=== PATIENT | female | born 1950 | race Caucasian/White ===

== ENCOUNTER 2021-07-16 16:48 | Outpatient (CLI) | payer MEDICARE, OTHER, SELFPAY ==
--- NOTE | ~2021-07-16 | XR_ITS ---
XR abdomen/kub 1V 07/16/2021 17:19 Indication: Bilateral renal stones Procedure: KUB Comparison: No prior studies for comparison. Findings: There are bilateral renal stones, largest confluent grouping of stones in the right kidney. There is a deployed IVC filter. Bowel pattern is nonobstructive. There is moderate lumbar spondylosi s. Moderate osteoarthritis of the hips. Lung bases are unremarkable. Impression: 1: Bilateral nephrolithiasis. Reviewed, dictated and finalized at location B. Impression: 1: Bilateral nephrolithiasis.
== END 2021-07-16 16:49 | disposition home or self-care (01) ==
LOC: ANHIMG 17:02
PROVIDERS: PCP Internal Medicine; Visit Provider Urology
DX: N20.0 Calculus of kidney (principal)
CPT/HCPCS: 74018

== ENCOUNTER 2021-10-22 15:02 | Outpatient (CLI) | payer MEDICARE, OTHER, SELFPAY ==
--- NOTE | ~2021-10-22 | XR_ITS ---
XR abdomen/kub 1V DATE: 10/22/2021 15:31 INDICATION: Bilateral renal stones. No pain. TECHNIQUE: AP projection of 2 views COMPARISON: 07/16/2021 KUB FINDINGS: There is relatively stable bilateral prominent nephrolithiasis compared to 07/16/2021. IVC filter is again noted. The psoas shadows are intact. No visceromegaly. No evidence of bowel obstruction. IMPRESSION: Bilateral nephrolithiasis IVC filter Reviewed, dictated and finalized at Location A. Reviewed, dictated and finalized at location A. 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
== END 2021-10-22 15:03 | disposition home or self-care (01) ==
PROVIDERS: PCP Internal Medicine; Visit Provider Urology
DX: N20.0 Calculus of kidney (principal)
CPT/HCPCS: 74018

== ENCOUNTER 2021-10-26 10:44 | Outpatient (CLI) | payer MEDICARE, OTHER, SELFPAY ==
--- NOTE | 2021-10-26 10:30 | ECG_ITS ---
Measurements Intervals [place] Rate: 61 P: 58 TN: 161 QRS: -14 QRSD: 93 T: 20 QT: 402 QTc: 407 Interpretive Statements SINUS RHYTHM INCOMPLETE RIGHT BUNDLE BRANCH BLOCK VOLTAGE CRITERIA FOR LVH MINIMAL Q WAVES- HIGH LATERAL LEADS BASELINE ARTIFACT- I, II, III, AVL, AVF BORDERLINE ECG Electronically Signed On 10-26-2021 11:07:48 [employer]IMARY MILL [employer]ER by Dereck Bryan D.O.
[2021-10-26 11:41] LABS: INR 1.8; Prothrombin Time 20.8 Seconds (11.1-14.7)
[2021-10-26 11:42] LABS: Partial Thromboplastin Time 32.9 SECONDS (22.3-36.8)
== END 2021-10-26 10:45 | disposition home or self-care (01) ==
LOC: ANHSURGERY 10:50
PROVIDERS: PCP Internal Medicine; Visit Provider Urology
DX: N20.0 Calculus of kidney (principal); I10 Essential (primary) hypertension; Z01.818 Encounter for other preprocedural examination; I45.10 Unspecified right bundle-branch block
CPT/HCPCS: 36415; 85610; 85730; 87086; 93005

== ENCOUNTER 2021-11-02 02:35 | Day surgery (SDC) | payer MEDICARE, OTHER, SELFPAY ==
[2021-10-25 13:33] VITALS: BMI 39.1
--- NOTE | 2021-10-25 13:50 | PC.NURSE ---
Report to the Outpatient Waiting Room, entrance under the green pavilion located off [facility], at time _0730_ on date _11/02/21_. OR Time: _0930_. - You and your visitor will be asked a series of questions to screen for COVID 19 for your protection. - A mask is required within the hospital. - NO visitors are allowed at this time. Patient visitors will be guided where to wait when not with patient. Preoperative COVID Testing Requirements: No COVID Test needed if: (proof is required; if not received patient will have Rapid Test prior to entry) - Patient has received COVID Vaccine at least 14 days prior to procedure date or - Patient has positive COVID test result within last 90 days of surgery date. COVID Test needed if above criteria is not met If not COVID vaccinated a COVID test must be conducted within 72 hours of surgery and patient is asked to isolate self from time of testing until procedure. You will go to the [email or web address] for your COVID testing. The [email or web address] site is located at the corner of [address] [facility]. You will only be called if COVID results are positive and your surgeon may reschedule your elective surgery date. Patients may have clear liquids (water, carbonated beverages, clear teas, apple juice) until 3 hours prior to surgery with a maximum of 20 ounces. (0630 AM) - No food from midnight until time of surgery - Infants may have breast milk until 4 hours before surgery, infant formula 6 hours prior to surgery. - Children will be allowed to drink immediately following surgery. If applicable, please bring a bottle or sippy cup to assist with drinking. Juice, water, soda, and popsicles are readily available. For infants on formula, please bring formula the day of surgery. Pacifiers are allowed. Take the following medications with a SIP of water the morning of surgery: _DILTIAZEM, LEVOTHYROXINE, PROPRANOLOL, TYLENOL__ Medications to discontinue per DR. BOLIVAR - COUMADIN - LAST DOSE TO BE TAKEN 10/26/21_ Medication to discontinue per ANESTHESIA - MULTIVITAMIN, VIT D3 - LAST DOSE TO BE TAKEN 10/29/21__ Please no make-up, nail gabonese, hairspray, perfume, deodorant, or body powder the day of surgery. No jewelry (including any body piercings) or valuables the day of surgery, leave them at home. Please take a shower or bath the night before, or the morning of, surgery with an antibacterial soap. Wear comfortable, loose fitting clothing. Children are encouraged to wear pajamas. - Jewelry must be removed prior to entering the operating room. Rings and piercings that are not removed may be cut off. - The hospital will not accept responsibility for valuables. - Please leave all valuables, including medications, at home the day of surgery. If you are going home after surgery, a licensed helper/driver must drive you home. - NO public transportation without another adult. - We recommend that an adult stay with you for 24 hours following discharge. - We also recommend that you do not drive, make important decision, drink alcoholic beverages, or take any drugs that were not prescribed by your health care provider for at least 24 hours after your discharge time. For Pediatric surgeries, we recommend two adults accompany the child home (only one inside the building at this time). Follow any additional instructions given to you from your surgeon. Telephone instructions given to ___PT and asked if any additional questions and then verbalized understanding. Patient advised to call surgeon office or pre surgery nurse liaison [phone] if any additional questions.
--- NOTE | 2021-11-01 14:29 | P.PNAN_ITS ---
Anes - Eval Pre Procedure Procedure: Operation Date: 11/02/21 09:30 Proposed Procedures p Right Extracorporeal Shock Wave Lithotripsy - Tejas Abreu MD Date/Time: 11/01/21 14:29 Pre Op Diagnosis: Rt Kidney Stone Patient Data Age: 71 Gender: F Height: 1.52 m Weight: 90.9 kg Allergies Allergy/AdvReac Type Severity Reaction Status Date / Time No Known Allergies Allergy Verified 10/25/21 13:24 Home Medications Medication Instructions Recorded Confirmed Type acetaminophen [Tylenol Ex Str 1,000 mg PO BID 10/25/21 10/25/21 History Arthritis Pain] albuterol 90 mcg INHALATION QID PRN 10/25/21 10/25/21 History cephalexin 250 mg HS 10/25/21 10/25/21 History cholecalciferol (vitamin D3) 25 mcg PO QAM 10/25/21 10/25/21 History [Vitamin D3] diltiazem HCl 180 mg PO QAM 10/25/21 10/25/21 History latanoprost 1 drp EACH EYE QPM 10/25/21 10/25/21 History levothyroxine 112 mcg PO QAM 10/25/21 10/25/21 History multivitamin [Multi-Vitamin] 1 tablet PO HS 10/25/21 10/25/21 History omeprazole 20 mg PO QAM 10/25/21 10/25/21 History propranolol [Inderal LA] 120 mg PO QAM 10/25/21 10/25/21 History sertraline 50 mg PO HS 10/25/21 10/25/21 History simvastatin 10 mg PO QAM 10/25/21 10/25/21 History warfarin [Coumadin] 2 mg PO HS 10/25/21 10/25/21 History Patient hx anesthesia problems: none Family hx anesthesia problems: none Results Review: All pre-operative results and documents have been reviewed as part of the pre-operative evaluation. [facility] Past Medical History Medical History (Updated 11/01/21 @ 14:35 by Crystal Sanders CRNA) Asthma Back pain GERD (gastroesophageal reflux disease) H/O deep venous thrombosis HTN (hypertension) Hx of pulmonary embolus Hyperlipidemia Hypothyroid Surgical History Surgical History (Updated 11/01/21 @ 14:35 by rCystal Sanders CRNA) H/O total knee replacement H/O total thyroidectomy S/P cervical spinal fusion S/P lumbar fusion Social History Social History Smoking status: Never smoker Second hand tobacco smoke exposure: No Alcohol intake: never Substance use: never Substance use type: does not use Spiritual care concerns: No Exam Day of Procedure 11/01/21 14:29
[2021-11-02] VITALS (11 sets, daily range): BP systolic 150–177; BP diastolic 68–101; PULSE 57–65; RESP 9–20; TEMP 36.2–37; O2SAT 91–100
[2021-11-02] MEDS: LACTATED RINGERS 1,000 ML 30 ML IV CONT ×2 (08:50→12:01)
[2021-11-02 09:14] LABS: INR 0.9; Prothrombin Time 12.1 Seconds (11.1-14.7)
[2021-11-02 09:15] LABS: Partial Thromboplastin Time 23.2 SECONDS (22.3-36.8)
--- NOTE | 2021-11-02 09:34 | WPDHPUPDATE1 ---
History and Physical Update Update Date/Time: 11/02/21 09:34 History and Physical has been reviewed, including an updated exam of the patient. There are NO changes in the patient's condition. Risks, benefits, and alternatives have been discussed and questions answered. Patient agrees to proceed with procedure. Proceed with cysto, right retrograde, right stent placement, right eswl.
[2021-11-02] MEDS: ceFAZolin 2 GM/D5W 50 ML 2 GM/50 ML BAG IVPB (10:05)
[2021-11-02] MEDS: LIDOCAINE HCL 2% GEL UROJET 10 ML PKG MUCOUS MEM (10:05)
--- NOTE | 2021-11-02 11:03 | P.OP_ITS ---
Procedure Note - Detailed Date of Procedure 11/02/21 Pre-op Diagnosis Rt Kidney Stone Post-op Diagnosis same Procedure Performed The cystoscopy, right retrograde pyelogram, right ureteral stent placement 4.8 Bur[place]ian, lithotripsy of right renal calculus Surgeon Tejas Abreu MD Anesthesia general Description of Procedure Patient is taken to the operative suite and correctly identified. Once anesthesia was obtained she was prepped and draped usual sterile fashion in a frog-leg position. Sixteen [place]ian scope inserted in the bladder. There were no tumors noted. Right ureteral orifice was cannulated with a guidewire. Five [place]ian Mantador was then placed over the wire. Retrograde pyelogram was then performed. The stones appeared to be air in an upper pole calyx and a mid pole calyx. A 4.8 [place]ian contour stent was then placed with the proximal end in the kidney and the distal in the bladder. 2% viscous lidocaine was inserted into the urethra. The patient was then repositioned and the stone was localized in both planes. Two thousand five hundred shocks were given to the stone. Did not appear to have any major fragmentation at this time. If little is seen on follow-up films then possibly she will require a percutaneous nephrolithotomy Drains Yes Packing No Pathology none sent Complications No immediate complications Condition stable Disposition PACU
[2021-11-02] MEDS: fentaNYL CITRATE INJ (*CRX) 100 MCG/2 ML VIAL 25 MCG IV PUSH ×2 (11:58→12:27)
[2021-11-02] MEDS: oxyCODONE HCL (*CRX) 5 MG TAB IR PO (13:05)
== END 2021-11-02 13:52 | disposition home or self-care (01) ==
PROVIDERS: PCP Internal Medicine; Visit Provider Urology
PROC: (CPT 50590; principal; 2021-11-02 09:30)
DX: N20.0 Calculus of kidney (principal); I10 Essential (primary) hypertension; E78.5 Hyperlipidemia, unspecified; J45.909 Unspecified asthma, uncomplicated; E89.0 Postprocedural hypothyroidism; K21.9 Gastro-esophageal reflux disease without esophagitis; Z86.711 Personal history of pulmonary embolism; Z86.718 Personal history of other venous thrombosis and embolism; Z79.51 Long term (current) use of inhaled steroids; Z79.01 Long term (current) use of anticoagulants; Z98.1 Arthrodesis status
CPT/HCPCS: 50590; 52332; 36415; 85610; 85730; A9270; C1758; C1769; C2617; J0690; J1100; J2405; J2704; J3010; J7120; Q9966

== ENCOUNTER 2021-11-14 14:45 | Outpatient (CLI) | payer MEDICARE, OTHER, SELFPAY ==
--- NOTE | ~2021-11-14 | XR_ITS ---
EXAMINATION: XR abdomen/kub 1V DATE: 11/14/2021 15:09 INDICATION: Bilateral nephrolithiasis with 2 weeks post lithotripsy. TECHNIQUE: A supine view of the abdomen was obtained. COMPARISON: 10/22/2021 FINDINGS: Interval placement of a right internal ureteral stent with loops formed over the bladder and right re nal pelvis. Again seen is bilateral nephrolithiasis. The formerly largest stone in the mid right kidn ey now appears fragmented into multiple smaller stones consistent with given history of interval lith otripsy. No stone fragments seen along the course of the right ureter. No interval change in at least 6 stones in the left kidney. There is a collection of tiny hyperdense foci to the left of the L3 nelson tebral body which appears medial to the kidney and not aligned along the axis of the left ureter like ly representing ingested material within the bowels. IVC filter in expected position. Severe lumbar s pondylosis. IMPRESSION: 1. Bilateral nephrolithiasis with fragmentation of the largest stone previously seen in the mid right kidney consistent with given history of interval lithotripsy. 2. Right internal ureteral stent in expected position with no evident stone fragments along the cours e of the stent. 3. IVC filter in expected position. Reviewed, dictated and finalized at location A. 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 Bilateral nephrolithiasis with fragmentation of the largest stone previously seen in the mid right kidney consistent with given history of interval lithotr ipsy. 2. Right internal ureteral stent in expected position with no evident stone fra gments along the course of the stent. 3. IVC filter in expected position.
== END 2021-11-14 14:46 | disposition home or self-care (01) ==
LOC: ANHIMG 14:51
PROVIDERS: PCP Internal Medicine; Visit Provider Urology
DX: N20.0 Calculus of kidney (principal); Z98.890 Other specified postprocedural states; Z96.0 Presence of urogenital implants
CPT/HCPCS: 74018

== ENCOUNTER 2022-01-29 13:47 | Outpatient (CLI) | payer MEDICARE, OTHER, SELFPAY ==
--- NOTE | ~2022-01-29 | XR_ITS ---
EXAMINATION: XR abdomen/kub 1V INDICATION: Bilateral renal stones TECHNIQUE: Supine view of the abdomen is obtained. COMPARISON: 11/14/2021 FINDINGS: A right internal ureteral stent has been removed. Stones measuring up to 11 mm are seen in the right kidney which have decreased in size. Previously described left kidney stones also decreased in size with the largest now measuring up to 2 mm. Calcifications project over the right L4 transver se process which could reflect stone fragments. An IVC filter is noted. There are phleboliths of the pelvis. There is moderate osteoarthritis of the hips. Severe lumbar spondylosis is noted. IMPRESSION: 1. Interval decrease in stone burden of the kidneys, likely due to lithotripsy. Possible stone fragme nts right renal pelvis. Reviewed, dictated and finalized at location A. IMPRESSION: 1. Interval decrease in stone burden of the kidneys, likely due to lithotripsy. Possible stone fragments right renal pelvis.
== END 2022-01-29 13:48 | disposition home or self-care (01) ==
PROVIDERS: PCP Internal Medicine; Visit Provider Urology
DX: N20.0 Calculus of kidney (principal)
CPT/HCPCS: 74018

== ENCOUNTER 2022-07-18 12:39 | Outpatient (CLI) | payer MEDICARE, OTHER, SELFPAY ==
--- NOTE | ~2022-07-18 | CT_ITS ---
EXAMINATION: CT abdomen pelvis wo/w con DATE: 07/18/2022 13:15 INDICATION: Recurrent urinary tract infections. TECHNIQUE: Computed tomography (CT) of the abdomen and pelvis was performed without and with intraven ous contrast using a total of 130 mL Omnipaque-350 intravenous contrast with a double-bolus technique for simultaneous opacification of the renal parenchyma and renal collecting system. Automated exposu re control and iterative reconstruction technique were employed. The dose-length product was 1776.74 mGy-cm. COMPARISON: None FINDINGS: The visualized portions of the lung bases demonstrate mild atelectasis. No pleural effusion. The hear t size is normal. No pericardial effusion. Calcifications in the liver and spleen are consistent with old granulomatous disease. The gallbladder, pancreas, and adrenal glands are normal. There are cysts in the kidneys measuring up to 11 mm on the left. There are at least six stones in right kidney bc uring up to 7 mm. There are three stones in left kidney measuring up to 3 mm. There is mild urothelia l thickening in right renal pelvis. Left ureter is well opacified and is normal. The bladder is izaiah l. There is a pessary in the vagina. There are uterine fibroids measuring up to 12 mm. The endometria l complex is thickened at 9 mm. There are no dilated loops of bowel. The appendix is normal. There is a supraumbilical ventral hernia containing fat. There are no pathologically enlarged lymph nodes. Th ere is no free intraperitoneal fluid. There is a filter in the inferior vena cava. There is severe th oracolumbar spondylosis. IMPRESSION: 1. Bilateral nonobstructing kidney stones. Mild urothelial thickening in right renal pelvis suggests inflammation. 2. Supraumbilical ventral hernia containing fat. 3. Thickened endometrial complex. The differential diagnosis includes endometrial hyperplasia, polyp, and carcinoma. Biopsy is recommended. Reviewed, dictated and finalized at location A. IMPRESSION: 1. Bilateral nonobstructing kidney stones. Mild urothelial thickening in right renal pelvis suggests inflammation. 2. Supraumbilical ventral hernia containing fat. 3. Thickened endometrial complex. The differential diagnosis includes endometri al hyperplasia, polyp, and carcinoma. Biopsy is recommended.
[2022-07-18 13:00] LABS: Estimated Glomerular Filt Rate > 60
== END 2022-07-18 12:40 | disposition home or self-care (01) ==
LOC: ANHIMG 12:43
PROVIDERS: PCP Internal Medicine; Visit Provider Nurse Practitioner
DX: N39.0 Urinary tract infection, site not specified (principal); N20.0 Calculus of kidney; K43.9 Ventral hernia without obstruction or gangrene
CPT/HCPCS: 74178; Q9967

== ENCOUNTER 2022-08-26 14:21 | Outpatient (CLI) | payer MEDICARE, OTHER, SELFPAY ==
--- NOTE | ~2022-08-26 | XR_ITS ---
XR abdomen/kub 1V 08/26/2022 14:43 Indication: Bilateral renal stones. Persistent discomfort. Procedure: KUB Comparison: Comparison to multiple prior studies sequentially, with oldest reviewed study dated 06/29. Findings: There are bilateral renal stones with decreased stone burden bilaterally compared with prio r studies. There is severe lumbar spondylosis. There is an IVC filter present, superior tip at the L2 level. There are pelvic phleboliths. There is moderate osteoarthritis of the hips. Impression: 1: Bilateral nephrolithiasis with decreased stone burden compared with prior studies Reviewed, dictated and finalized at location A. BOSS Impression: 1: Bilateral nephrolithiasis with decreased stone burden compared with prior [facility]
== END 2022-08-26 14:22 | disposition home or self-care (01) ==
PROVIDERS: PCP Internal Medicine; Visit Provider Urology
DX: N20.0 Calculus of kidney (principal)
CPT/HCPCS: 74018